=== PATIENT | female | born 1940 | race Caucasian/White ===

== ENCOUNTER → 2024-02-09 08:14 | Outpatient (REF) | payer MEDICARE, OTHER, SELFPAY ==
[2024-02-09 08:57] LABS: % Eosinophils 3.8 % (0-6); % Immature Granulocytes 0.2 % (0-0.5); % Monocytes 8.9 % (1.7-9.3); % Neutrophils 61.1 % (42.2-75.2); Absolute Basophils 0.1 10^3/uL (0-0.2); Absolute Eosinophils 0.2 10^3/uL (0-0.7); Absolute Lymphocytes 1.4 10^3/uL (1.2-3.4); Absolute Monocytes 0.5 10^3/uL (0.1-0.6); Absolute Neutrophils 3.5 10^3/uL (1.4-6.5); Hematocrit 45.6 % (37.0-47.0); Mean Corp Hgb Conc. 32.9 g/dL (33.0-37.0); Mean Corpuscular Hgb 27.9 pg (27.0-31.0); Mean Corpuscular Volume 84.8 fL (81.0-99.0); Mean Platelet Volume 9.5 fL (7.4-10.4); Nucleated Red Blood Cells % 0 %; Platelet Count 253 10^3/uL (130-400); Red Blood Cell Count 5.38 10^6/uL (4.20-5.40); White Blood Cell Count 5.7 10^3/uL (4.8-10.8)
[2024-02-09 09:32] LABS: ALT (SGPT) 17 U/L (0-35); AST (SGOT) 26 U/L (14-36); Albumin 4.8 g/dl (3.5-5.0); Alkaline Phosphatase 70 U/L (38-126); Blood Urea Nitrogen 16 mg/dl (7-17); Calcium 9.7 mg/dl (8.4-10.2); Carbon Dioxide 28 mmol/L (22-30); Chloride 104 mmol/L (98-107); Glucose 101 mg/dl (70-99); HDL Cholesterol 67 mg/dl; LDL Cholesterol, Calculated 90 mg/dl; Potassium 4.3 mmol/L (3.5-5.1); Sodium 142 mmol/L (135-145); Total Bilirubin 1.5 mg/dl (0.2-1.3); Total Cholesterol 198 mg/dl (50-199); Total Protein 7.7 g/dl (6.3-8.2); Triglyceride 206 mg/dl (10-149); Very Low Density Lipoprotein 41 mg/dl (0-30); eGFR > 60.00
[2024-02-09 11:38] LABS: TSH Reflex To Free T4 2.71 uIU/ml (0.47-4.68)
[2024-02-09 12:49] LABS: Glycohemoglobin (HgbA1c) 6.3 % (4.0-5.6)
== END ==
LOC: REG 08:14
PROVIDERS: ATTENDING PHYSICIAN Family Medicine
DX: I10 Essential (primary) hypertension (principal); E78.00 Pure hypercholesterolemia, unspecified; E03.9 Hypothyroidism, unspecified; R73.09 Other abnormal glucose
CPT/HCPCS: 36415; 80053; 80061; 83036; 84443; 85025

== ENCOUNTER 2025-03-30 11:01 | Emergency (ER) | payer MEDICARE, OTHER, SELFPAY ==
[2025-03-30 11:09] VITALS: BP 137/94
[2025-03-30 11:52] VITALS: BP 147/85
[2025-03-30 12:01] VITALS: BP 152/88
[2025-03-30 13:01] VITALS: BP 173/102
--- NOTE | 2025-03-30 13:02 | ED.GENMED ---
History of Present Illness
General
Chief Complaint: Chest Pain
Source: patient
Time Seen by Provider: 03/30/25 12:48
History of Present Illness
History of Present Illness:
84-year-old female presents to the emergency room complaining of an episode of chest pain. Patient states that she was doing her food shopping when she developed a crampy or tight feeling in her chest that radiated to her neck into her back.
Episode occurred about 10 AM. It lasted for about 30 minutes and resolved. She feels back to her baseline now and is anxious to go home and cut her grass. She denies any cardiac history. She may have had a similar episode a year ago. She has
never seen a development technologist. She had a stress test about 3 years ago for an insurance policy which was evidently unremarkable. The chest discomfort was not associated with shortness of breath, diaphoresis or nausea.
Past History
Past History
ED Past Medical History: None
ED Past Surgical History: None
Phy Exam
Physical Exam
Physical Exam:
General: Awake, Alert, Oriented X3. No acute distress.
Vitals: unremarkable
Head: Atraumatic
Eyes: Pupils equal, EOMI
Throat: Airway intact, no exudates
Neck: Trachea midline
Lungs: Clear and equal b/l
Heart: Regular rate, no murmurs
Abd: Soft, Nontender, No pulsatile mass
Neuro: Nonfocal
Skin: Warm, dry, no rash
Extremities: pulses equal b/l, no edema
Scores
Heart Score for Chest Pain Patients
STEMI patient?: No
History: Moderately Suspicious
ECG: Nonspecific Repolarization
Age: >/= 65 years
Risk Factors: 1 or 2 Risk Factors
Troponin: </= Normal Limit
Heart Score for Chest Pain Patients: 5
Heart Score Risk: 20.3% MACE over next 6 weeks
Course
Orders/Labs/Results
Orders:
Orders
03/30/25 11:02
EKG [Electrocardiogram (*1)] Urgent
Reason for Study: Chest Pain
EKG- Treatment ONCE
03/30/25 13:00
Aspirin Chewable [Low Strength Aspirin] 324 mg PO NOW STA
03/30/25 13:01
Cardiac Monitoring- Treatment ONCE
03/30/25 13:07
CR Chest - 2 Views Urgent
Comment:
Reason For Exam: chest pain
03/30/25 13:22
Basic Metabolic Panel Urgent
Complete Blood Count/With Diff Urgent
Troponin I Urgent
03/30/25 13:45
CT Chest Angio W/wo Iv Contras Urgent
Comment:
Reason For Exam: chest pain, wide mediastinum
Abnormal Lab Results
03/30/25
13:22
RBC 5.52 H 10^6/uL
(4.20-5.40)
Lymphocytes % 17.7 L %
(20.5-51.1)
Chloride 109 H mmol/L
(98-107)
BUN 19 H mg/dl
(7-17)
Glucose 107 H mg/dl
(70-99)
03/30/25 13:22
03/30/25 13:22
Vital Signs
Initial and Last Documented VS:
Initial Vital Signs
Temp Pulse Resp BP Pulse Ox
98.1 F 85 20 137/94 94
03/30/25 11:09 03/30/25 11:09 03/30/25 11:09 03/30/25 11:09 03/30/25 11:09
Last Documented Vital Signs
Temp Pulse Resp BP Pulse Ox
98.1 F 89 22 182/86 92
03/30/25 11:09 03/30/25 15:45 03/30/25 15:45 03/30/25 15:00 03/30/25 15:30
MDM/Problems Addressed
Differential Diagnosis Includes:
Angina, NSTEMI, GERD, dysrhythmia
MDM/Problems Addressed:
Patient presents with chest discomfort that is resolved. Description of discomfort is moderately concerning for angina. Upon our initial interaction the patient was quite anxious to leave because her discomfort had gone away. We discussed the
fact my suspicion for coronary artery disease is moderate and that the fact she had a EKG which did not show a heart attack was insufficient to answer all the questions. I was able to convince her to stay for labs.
Troponin was unremarkable. CT of the chest shows no dissection or aneurysm. Patient placed on the chest pain hotline. Instructed return if she has any further chest pain.
*Radiology
Radiology exam reviewed: radiology read reviewed
*Pulse Oximetry
SaO2: 94
Oxygen Mode of Delivery: Room air
Patient hypoxic: no
*EKG
Interpreted by ED Provider?: Yes
Comparison EKG: no comparison EKG present
Heart Rate: 72
Rate: normal
Rhythm: sinus and PVC's
Ischemia: non-specific ST changes
*Jr. Systems Administrator Interpretation
Rate: normal
Interpretation: abnormal
Heart Rate: 72
Rhythm: sinus and PVC's
*Critical Care Note
Total Time (30-74mins, 75-104mins- exclusive of procedures): Not Applicable
ED Attending Note
-
Portions of this chart may have been created with voice recognition software.� Occasional wrong word or��sound alike� substitutions may have occurred due to the inherent limitations of voice recognition software.
Discharge Plan
Departure
Patient Disposition: Home (Routine Discharge)
Date of Disposition: 03/30/25
Time of Disposition: 15:38
Patient with high blood pressure during this ER visit?: Yes
Condition: Good
Discharge Problem:
Chest pain
Instructions: Chest Pain DCA Follow Up, BLOOD PRESSURE
Prescriptions:
No Action
atorvastatin 20 mg Tablet
20 mg PO DAILY
amlodipine 10 mg Tablet
10 mg PO DAILY
levothyroxine 50 mcg Tablet
50 mcg PO DAILY
ibuprofen 200 mg Tablet
200 mg PO BIDPRN PRN (Reason: mild pain)
omeprazole 20 mg Capsule,Delayed Release(Dr/Ec)
20 mg PO DAILY
Referrals:
Norberto North MD [Family Provider, Family Practice]
Karthikeyan Kim MD [Active, Cardiology]
Activity Restrictions/Additional Instructions:
You came for evaluation of chest pain today. Your EKG does not show any evidence of heart attack. Your heart test is okay. We performed a CAT scan of your chest to make sure there was no problem with your aorta. The CAT scan shows no problem
with the aorta. You certainly need to follow-up with a development technologist for further cardiac evaluation. I given you discharge instructions for [facility]. They may call you tomorrow morning to schedule a follow-up appointment.
If you do not hear from them by noon give the office a call. Return to the emergency room if your chest pain returns.
Interventions
Interventions:
*Risk Screen - Suicide Last Done: 03/30/25 11:04
*General Assessment Last Done: 03/30/25 11:04
*Neglect/Abuse Screening Last Done: 03/30/25 11:04
*ED- Fall Risk Assessment Last Done: 03/30/25 16:00
*ED COVID-19 Vaccine History Last Done: 03/30/25 16:00
*Nursing Disposition Last Done: 03/30/25 17:07
ED- Cardiac Assessment Last Done: 03/30/25 12:00
Discharge Date and Time
Discharge Date/Time: 03/30/25 16:00
Print Language: POLISH
[2025-03-30 13:23] VITALS: BMI 26.7
[2025-03-30 13:34] LABS: Hematocrit 46.8 % (37.0-47.0); Hemoglobin 15.6 g/dL (12.0-16.0); Mean Corp Hgb Conc. 33.3 g/dL (33.0-37.0); Mean Corpuscular Volume 84.8 fL (81.0-99.0); Nucleated Red Blood Cells % 0 %; Platelet Count 231 10^3/uL (130-400); Red Cell Dist. Width 13.9 % (11.5-14.5)
[2025-03-30 13:53] LABS: Blood Urea Nitrogen 19 mg/dl (7-17); Calcium 9.7 mg/dl (8.4-10.2); Carbon Dioxide 27 mmol/L (22-30); Chloride 109 mmol/L (98-107); Estimated Creatinine Clearance 45 ml/min; Glucose 107 mg/dl (70-99); Potassium 4.5 mmol/L (3.5-5.1); Sodium 142 mmol/L (135-145); eGFR > 60.00
[2025-03-30 14:01] LABS: Troponin I < 0.012 ng/ml
[2025-03-30 14:54] VITALS: BP 187/163
[2025-03-30 15:00] VITALS: BP 182/86
== END 2025-03-30 16:00 | disposition home or self-care (01) ==
LOC: EMR 11:01
PROVIDERS: EMERGENCY PHYSICIAN Emergency Medicine; FAMILY PHYSICIAN Family Medicine
DX: R07.89 Other chest pain (principal)
CPT/HCPCS: 99284; 71046; 71275; 80048; 84484; 85025; 93005; Q9967

== ENCOUNTER → 2025-05-04 07:51 | Outpatient (REF) | payer MEDICARE, OTHER, SELFPAY | LOC: HWRCS 07:51 | PROVIDERS: ATTENDING PHYSICIAN Internal Medicine Cardiovascular Disease; FAMILY PHYSICIAN Family Medicine | DX: R07.9 Chest pain, unspecified (principal) | CPT/HCPCS: 78452; 93017; A9500; J2785 ==

== ENCOUNTER → 2025-05-10 07:53 | Outpatient (REF) | payer MEDICARE, OTHER, SELFPAY | LOC: RCS 07:53 | PROVIDERS: ATTENDING PHYSICIAN Internal Medicine Cardiovascular Disease; FAMILY PHYSICIAN Family Medicine | DX: R07.9 Chest pain, unspecified (principal) | CPT/HCPCS: 93306 ==

== ENCOUNTER → 2025-06-06 08:01 | Outpatient (REF) | payer MEDICARE, OTHER, SELFPAY ==
[2025-06-06 09:48] LABS: Blood Urea Nitrogen 14 mg/dl (7-17); Calcium 9.0 mg/dl (8.4-10.2); Carbon Dioxide 29 mmol/L (22-30); Chloride 107 mmol/L (98-107); Glucose 94 mg/dl (70-99); Potassium 4.3 mmol/L (3.5-5.1); Sodium 143 mmol/L (135-145); eGFR > 60.00
== END ==
LOC: REG 08:01
PROVIDERS: ATTENDING PHYSICIAN Internal Medicine Cardiovascular Disease; FAMILY PHYSICIAN Family Medicine
DX: I10 Essential (primary) hypertension (principal)
CPT/HCPCS: 36415; 80048

== ENCOUNTER 2025-08-30 16:39 | Inpatient (IN) | payer MEDICARE, OTHER, SELFPAY ==
[2025-08-30] VITALS (10 sets, daily range): BP systolic 135–201; BP diastolic 80–116; BMI 26.2; BMI 25.8
[2025-08-30] MEDS: TYLENOL 650 MG PO (12:49)
[2025-08-30 13:07] LABS: Hematocrit 48.9 % (37.0-47.0); Hemoglobin 16.5 g/dL (12.0-16.0); Mean Corp Hgb Conc. 33.7 g/dL (33.0-37.0); Mean Corpuscular Volume 84.9 fL (81.0-99.0); Nucleated Red Blood Cells % 0 %; Platelet Count 229 10^3/uL (130-400); Red Cell Dist. Width 13.6 % (11.5-14.5)
[2025-08-30 13:23] LABS: ALT (SGPT) 18 U/L (0-35); AST (SGOT) 27 U/L (14-36); Albumin 5.2 g/dl (3.5-5.0); Alkaline Phosphatase 82 U/L (38-126); Blood Urea Nitrogen 12 mg/dl (7-17); Calcium 9.5 mg/dl (8.4-10.2); Carbon Dioxide 28 mmol/L (22-30); Chloride 102 mmol/L (98-107); Estimated Creatinine Clearance -12 ml/min; Glucose 124 mg/dl (70-99); Potassium 3.9 mmol/L (3.5-5.1); Sodium 140 mmol/L (135-145); Total Protein 8.5 g/dl (6.3-8.2); eGFR > 60.00
[2025-08-30 13:39] LABS: Troponin I 0.820 ng/ml
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
[2025-08-30 16:36] LABS: Urine Character Clear (Clear)
[2025-08-30 16:51] LABS: Urine White Cell 0-2 /HPF (0-5)
[2025-08-30 16:52] LABS: Urine Red Blood Cell 0-2 /HPF (0-2)
[2025-08-30] MEDS: ASPIRIN 324 MG PO (17:33)
[2025-08-30 18:07] LABS: Troponin I 2.450 ng/ml
[2025-08-30] MEDS: LOVENOX 40 MG SC (20:56)
[2025-08-30] MEDS: LIPITOR 20 MG PO (20:56)
--- NOTE | 2025-08-30 21:30 | PTCARENOTE ---
Pt arrived to unit AAOx3, confused, forgetful, unsteady gait, standby assist. Pt ambulated self from stretcher to bed. Bed alarm placed on, bed locked, lowest position, wheels locked, call bailon in reach. NIH:2
[2025-08-30] MEDS: LOPRESSOR 25 MG PO (21:41)
[2025-08-31] VITALS (8 sets, daily range): BP systolic 126–148; BP diastolic 70–96; PULSE 56; O2SAT 94
[2025-08-31 01:22] LABS: Troponin I 1.580 ng/ml
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
[2025-08-31] MEDS: SYNTHROID 50 MCG PO (06:02)
[2025-08-31 08:46] LABS: Hematocrit 44.5 % (37.0-47.0); Hemoglobin 15.1 g/dL (12.0-16.0); Mean Corp Hgb Conc. 33.9 g/dL (33.0-37.0); Mean Corpuscular Volume 84.4 fL (81.0-99.0); Platelet Count 204 10^3/uL (130-400); Red Cell Dist. Width 13.7 % (11.5-14.5)
[2025-08-31] MEDS: PROTONIX 40 MG PO (08:53)
[2025-08-31] MEDS: LIPITOR 20 MG PO (08:53)
[2025-08-31] MEDS: LOW STRENGTH ASPIRIN 81 MG PO (08:54)
[2025-08-31] MEDS: LOPRESSOR 25 MG PO (08:54)
[2025-08-31 09:15] LABS: Troponin I 0.887 ng/ml
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
[2025-08-31 09:28] LABS: Blood Urea Nitrogen 12 mg/dl (7-17); Calcium 9.0 mg/dl (8.4-10.2); Carbon Dioxide 25 mmol/L (22-30); Chloride 103 mmol/L (98-107); Estimated Creatinine Clearance 50 ml/min; Glucose 169 mg/dl (70-99); HDL Cholesterol 52 mg/dl; LDL Cholesterol, Calculated 65 mg/dl; Magnesium 1.9 mg/dl (1.6-2.3); Potassium 3.6 mmol/L (3.5-5.1); Sodium 137 mmol/L (135-145); Very Low Density Lipoprotein 27 mg/dl (0-30); eGFR > 60.00
[2025-08-31 10:21] LABS: Glycohemoglobin (HgbA1c) 6.1 % (4.0-5.9)
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
[2025-08-31] MEDS: LOVENOX 40 MG SC (16:33)
[2025-08-31 16:45] LABS: Ferritin 58.6 ng/ml (11.1-264.0)
--- NOTE | 2025-08-31 16:46 | PTOTSP ---
[facility] Evaluations
Patient may be at acute on chronic risk for dysphagia due to acute findings of mass in right valleculae and GERD. Consider instrumental swallowing to objectively assess if patient in agreement.
MOCA 8.1 = concerning for a moderate cognitive impairment with changes to visuospatial/executive function, attention, abstraction, language (sentence repetition, suspect memory > language), and delayed recall.
Recommend:
1. Cognitive linguistic evaluation/tx at the acute care level and after D/C
2. Regular, Thin liquid diet
3. Consider instrumental swallow testing
[2025-08-31 17:16] LABS: Folate 13.9 ng/ml (2.76-20); Vitamin B12 195 pg/ml (239-931)
[2025-08-31] MEDS: TOPROL XL 25 MG PO (21:20)
[2025-09-01] VITALS (13 sets, daily range): BP systolic 126–155; BP diastolic 68–93
[2025-09-01] MEDS: SYNTHROID 50 MCG PO (05:29)
[2025-09-01 07:51] LABS: Hematocrit 42.8 % (37.0-47.0); Hemoglobin 14.5 g/dL (12.0-16.0); Mean Corp Hgb Conc. 33.9 g/dL (33.0-37.0); Mean Corpuscular Volume 83.6 fL (81.0-99.0); Platelet Count 204 10^3/uL (130-400); Red Cell Dist. Width 13.8 % (11.5-14.5)
[2025-09-01 08:24] LABS: Blood Urea Nitrogen 17 mg/dl (7-17); Calcium 9.1 mg/dl (8.4-10.2); Carbon Dioxide 29 mmol/L (22-30); Chloride 104 mmol/L (98-107); Estimated Creatinine Clearance 40 ml/min; Glucose 95 mg/dl (70-99); Potassium 3.9 mmol/L (3.5-5.1); Sodium 140 mmol/L (135-145); eGFR 55.21
[2025-09-01] MEDS: TOPROL XL 25 MG PO (08:34)
[2025-09-01] MEDS: LOW STRENGTH ASPIRIN 81 MG PO (08:34)
[2025-09-01] MEDS: PROTONIX 40 MG PO (08:35)
[2025-09-01] MEDS: LIPITOR 20 MG PO (08:36)
--- NOTE | 2025-09-01 10:07 | PTCARENOTE ---
Received pt from biology laboratory assistant for complaints of blurry vision after biology laboratory assistant sedation. Rt eye droop is chronic and variable per patient. NIH performed with no deficits aside from rt eye droop. Pt claims her vision can be blurry at times, but right now
is experiencing some double vision. Also complains of feeling mildly dizzy. VSS. Drank a cup of coffee. VSS. TR band in place. Spo2 on both hands reading 91%. O2 2L applied with spo2 93-95%.
--- NOTE | 2025-09-01 10:18 | CM ---
Addendum entered by Molly Pierce 09/01/25 15:20:
additional referrals to [facility] and [facility] per patient/son
Addendum entered by Molly Pierce 09/01/25 14:57:
Patient seen at bedside with son - discussed PT rec SNF - Medicare.gov information given to patient
patient agreeable to SNF - referral to [facility] entered in careport
will provide CM other referrals to entered once information reviewed
no preauth needed
PLAN: SNF, pending bed availability
Original Note:
patient for cardiac cath - unavailable currently
PT rec SNF
CM will need to discuss options with patient
PLAN: SNF, CM to follow up with patient after cardiac cath for options of facilities
--- NOTE | 2025-09-01 10:31 | PTCARENOTE ---
Glucose 95. Irish muffin with PB given. Dr. Esqueda and Sanam Nieto at bedside.
[2025-09-01 10:39] LABS: Glucose - Point of Care 95 mg/dl (70-99)
--- NOTE | 2025-09-01 10:46 | PTCARENOTE ---
Dr. Kelly, Neurology at bedside.
--- NOTE | 2025-09-01 11:39 | PTCARENOTE ---
On reevaluation, pt claims double vision has resolved. Dr. Kelly notified.
--- NOTE | 2025-09-01 11:55 | PTCARENOTE ---
Pt returned to unit at 1155 awake and alert. Band to right wrist intact.
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
[2025-09-01] MEDS: LOVENOX 40 MG SC (16:54)
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
--- NOTE | 2025-09-01 18:18 | ITS.CL.CATH ---
[facility] - Catheterization
Cardiac Catheterization
Procedure Report:
LEFT HEART CATHETERIZATION
Date of Procedure: September 01, 2025
Referring: Karthikeyan Judy
PROCEDURES:
1. Left heart catheterization, coronary angiogram.
2. Moderate sedation.
INDICATION: Concern for NSTEMI
ACCESS: Right radial artery, 6Fr. sheath, under US guidance.
HEMODYNAMICS : (mmHg)
AO (s/d) : 143/81
LVEDP : 12
No significant gradient across the aortic valve to suggest aortic stenosis.
CORONARY FINDINGS
Dominance: Right
Left Main Trunk (LMT): Large caliber vessel that gives rise to the LAD and LCx branches and is free of angiographic disease.
Left Anterior Descending Artery (LAD): Large caliber vessel that gives off 2 major diagonal branches as it courses along the anterior inter-ventricular groove before wrapping around the cardiac apex. The LAD and its branches are free of
angiographic disease.
Ramus Intermedius (RI): Medium caliber vessel with minimal luminal irregularities.
Left Circumflex Artery (LCx): Medium caliber vessel that gives off 2 major obtuse marginal (OM) branches as it courses along the atrio-ventricular (AV) groove. The LCx and its branches are free of angiographic disease.
Right Coronary Artery (RCA): Large caliber dominant vessel that gives rise to the posterior descending artery (RPDA) and postero-lateral ventricular (RPLV) branches distally. The RCA and its branches are free of angiographic disease.
SEDATION: 17 minutes of procedural sedation was utilized. IV Midazolam and IV Fentanyl were administered. An independent medical researcher was present to assist with and help manage the patient's level of consciousness and physiologic status.
RADIATION SUMMARY: Fluoro Time (min): 1.8, Dose (mGy): 172.56, DAP (Gy.cm2) : 14.09
Closure Device: There were no immediate intra-procedural complications. The sheath was pulled in the optical laboratory manager and a vascular-band applied to the right wrist for radial artery hemostasis using the patent hemostasis technique.
CONCLUSIONS
1. No obstructive coronary artery disease.
2. LVEDP of 12 mmHg.
RECOMMENDATIONS
1. Wean radial band per protocol. Monitor right hand perfusion and for bleeding from the radial site following removal of the vascular-band following trans-radial access.
2. Continue aggressive medical therapy and risk factor modification for secondary CAD prevention.
3. Hydrate with normal saline to mitigate the risk of contrast-induced acute kidney injury.
Radah Esqueda MD, FACC, [facility]
Copy to: Karthikeyan Kim MD
[2025-09-02 03:39] VITALS: BP 135/75
[2025-09-02] MEDS: SYNTHROID 50 MCG PO (05:16)
[2025-09-02 07:22] VITALS: BP 143/82
[2025-09-02] MEDS: PROTONIX 40 MG PO (08:20)
[2025-09-02] MEDS: LOW STRENGTH ASPIRIN 81 MG PO (08:20)
[2025-09-02] MEDS: LIPITOR 20 MG PO (08:20)
[2025-09-02] MEDS: TOPROL XL 25 MG PO (08:20)
[2025-09-02 09:36] LABS: Blood Urea Nitrogen 16 mg/dl (7-17); Calcium 8.9 mg/dl (8.4-10.2); Carbon Dioxide 27 mmol/L (22-30); Chloride 106 mmol/L (98-107); Estimated Creatinine Clearance 40 ml/min; Glucose 91 mg/dl (70-99); Potassium 3.9 mmol/L (3.5-5.1); Sodium 139 mmol/L (135-145); eGFR 55.21
[2025-09-02 11:14] VITALS: BP 142/76
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
[2025-09-02 14:54] VITALS: BP 149/78; PULSE 63; O2SAT 93
--- NOTE | 2025-09-02 14:56 | CM ---
Addendum entered by Andreina Garduno 09/02/25 15:29:
Patient for d/c to [facility], 4:00-4:30 p.m. WC Van transport
Daughter in law provided with number to call for transport.
Update to Shae at [facility] with transport time.
Plan; 4:00-4:30 p.m. WC Van transport
[facility]
Report: [phone]

Original Note:
CM reviewed chart, patient seen bedside with daughter in law.
Patient for MRI Brain, if negative, can d.c to [facility].
Updates to Shae at [facility]. SNF unable to accept over weekend, will review Friday if patient unable to d.c today.
IMM verbally reviewed, provided with copy, placed in chart.
Family aware of WC Van/cost for transport.
CM will continue to follow.
Plan; [facility] SNF, today vs Friday
[2025-09-02 15:18] VITALS: BP 149/78
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
== END 2025-09-02 16:49 | DRG 286 ==
LOC: 4 WEST ACU 16:39
PROVIDERS: Internal Medicine Interventional Cardiology; Nurse Practitioner Adult Health; Physician Assistant; ADMITTING PHYSICIAN General Practice; CONSULT PHYSICIAN Internal Medicine Cardiovascular Disease; CONSULT PHYSICIAN Psychiatry & Neurology Neurology; EMERGENCY PHYSICIAN Emergency Medicine; FAMILY PHYSICIAN Family Medicine
PROC: B2111ZZ Fluoroscopy of Multiple Coronary Arteries using Low Osmolar Contrast (ICD-10-PCS; 2025-09-01)
PROC: 4A023N7 Measurement of Cardiac Sampling and Pressure, Left Heart, Percutaneous Approach (ICD-10-PCS; 2025-09-01)
DX: S26.91XA Contusion of heart, unspecified with or without hemopericardium, initial encounter (principal); G93.41 Metabolic encephalopathy; I5A Non-ischemic myocardial injury (non-traumatic); I16.0 Hypertensive urgency; E03.9 Hypothyroidism, unspecified; Z79.82 Long term (current) use of aspirin; F41.9 Anxiety disorder, unspecified; Z79.899 Other long term (current) drug therapy; E78.00 Pure hypercholesterolemia, unspecified; I10 Essential (primary) hypertension; I70.0 Atherosclerosis of aorta; J43.9 Emphysema, unspecified; K21.9 Gastro-esophageal reflux disease without esophagitis; M43.12 Spondylolisthesis, cervical region; M47.819 Spondylosis without myelopathy or radiculopathy, site unspecified; V89.2XXA Person injured in unspecified motor-vehicle accident, traffic, initial encounter
CPT/HCPCS: 70496; 70498; 70551; 71046; 80048; 80053; 80061; 81003; 81015; 82607; 82728; 82746; 82962; 83036; 83735; 84443; 84484; 85025; 85027; 85652; 92610; 93005; 93306; 93458; 97112; 97116; 97162; 97166; 99152; 99285; C1769; Q9967

== ENCOUNTER → 2025-09-10 22:32 | Outpatient (REF) | payer MEDICARE, OTHER, SELFPAY ==
[2025-09-10 22:52] LABS: Urine Character Cloudy (Clear)
[2025-09-10 23:03] LABS: Urine White Cell 90-100 /HPF (0-5)
== END ==
LOC: OLABN 22:32
PROVIDERS: ATTENDING PHYSICIAN Student in an Organized Health Care Education/Training Program
DX: R35.0 Frequency of micturition (principal)
CPT/HCPCS: 81003; 81015; 87077; 87086